=== PATIENT | male | born 1965 | race Caucasian/White ===

== ENCOUNTER 2019-09-30 18:35 | Emergency (ER) | payer OTHER, SELFPAY ==
--- NOTE | ~2019-09-30 | XR_ITS ---
XR abdomen/kub 1V 09/30/2019 20:17 INDICATION: Right-sided flank pain TECHNIQUE: KUB COMPARISON: None FINDINGS: Bowel gas pattern is normal. There is no evidence of free air, mass, organomegaly, ascites or obstruction. There is a 4 mm right ureteral stone overlying the sacrum. There are pelvic phleboli ths. The bones appear intact. IMPRESSION: 1: 4 mm right ureteral stone at the sacral level. Reviewed, dictated and finalized at location A. TERING FILTERING SUPERVISOR
--- NOTE | ~2019-09-30 | CT_ITS ---
EXAMINATION: CT abdomen pelvis wo con DATE: 09/30/2019 19:54 INDICATION: Right flank pain. History of stones. TECHNIQUE: Computed tomography (CT) of the abdomen and pelvis was performed without intravenous contr ast. The dose-length product was 342.30 mGy-cm. Automated exposure control and iterative reconstructi on technique were employed. COMPARISON: CT dated 04/24/2020 FINDINGS: Lung bases are unremarkable. Heart size is normal. No significant pleural or pericardial ef fusion. Calcified granuloma right lower lobe. Stable small subcentimeter hypodensity right hepatic lobe, most likely benign. The spleen, pancreas, adrenal glands are unremarkable. There are multiple punctate bilateral renal stones. There is a 4 mm right ureteral stone at the sacral level, image 124 with mild right hydroureteronephrosis. There is m ild left hydronephrosis, although no gross obstructing stone or mass identified. There are pelvic phl eboliths. There is atherosclerosis. Gallbladder is present. Nonobstructive bowel gas pattern. No claribel l obstruction. No free air or free fluid. Mild lumbar spondylosis. IMPRESSION: 1. 4 mm right ureteral stone at the sacral level. Mild hydronephrosis. 2: Bilateral nephrolithiasis. Reviewed, dictated and finalized at location A. IO TECH
[2019-09-30 18:48] VITALS: BP 171/91; PULSE 78; RESP 15; TEMP 36.7; O2SAT 99
--- NOTE | 2019-09-30 19:25 | ED.ABDPAIN ---
HPI - Abdominal Pain General Chief Complaint: Back Pain/Injury Stated Complaint: kidney stone Time Seen by Provider: 09/30/19 19:22 Source: patient and RN notes reviewed Mode of arrival: ambulatory Limitations: no limitations History of Present Illness HPI narrative: Pt is a 53 y/o male with a Hx of frequent kidney stones, who presents to the ED with c/o rt flank pain starting roughly 3-4 hours ago. He notes that he was recently diagnosed with kidney stones 5 months ago. Pt states that he subsequently received a lithotripsy in April of 2019. He notes that he then passed several tic tac sized kidney stones last week. Pt states that he developed pain in his rt flank several hours ago this evening. He describes his pain as dull, and currently rates his pain at 10/10. Pt notes that he took Hydrocodone for his symptoms, but denies having any relief. He states that he believes he is having another kidney stone currently. Pt denies any dysuria, gross hematuria, vomiting, CP, SOB, fever, chills, or other symptoms. MD elicited complaint: flank pain Pertinent past history: kidney stones and other (lithotripsy) Onset (ago): hour(s) (3-4) Location: R flank Pain scale (0-10): 10 Quality: dull Associated symptoms: denies other symptoms Treatments prior to arrival: prescription analgesics (Hydrocodone) Related Data Home Medications Medication Instructions Recorded Confirmed alprazolam 09/30/19 hydrocodone-acetaminophen 09/30/19 Allergies Allergy/AdvReac Type Severity Reaction Status Date / Time No Known Allergies Allergy Verified 09/30/19 18:52 Review of Systems Review of Systems: All systems reviewed & are unremarkable except as noted in HPI and below Constitutional: Constitutional: Denies chills, Denies fever(s), Denies headache(s) and Denies weakness Cardiovascular: Cardiovascular: Denies chest pain and Denies dyspnea Respiratory: Respiratory: Denies cough and Denies dyspnea Gastrointestinal: Gastrointestinal: Denies diarrhea, Denies nausea and Denies vomiting Genitourinary: Genitourinary: Denies hematuria, Denies dysuria and Reports flank pain (rt flank pain) PMFSH Past Medical History Medical History Anxiety Carpal tunnel syndrome Depression GERD (gastroesophageal reflux disease) HLD (hyperlipidemia) Kidney stones frequent Peptic ulcer Plantar fasciitis Right arm fracture Surgical History Surgical History Hx of carpal tunnel repair bilateral wrists Hx of cystoscopy with extraction of kidney stone Hx of lithotripsy Social History Social History Smoking status: Former smoker Gender identity (if verbalized by the patient): Male Comments PCP is Dr. Hemphill. Urologist is Dr. Jarvis. Exam Const: General: no acute distress and well developed Orientation/consciousness: oriented to person, oriented to place, oriented to time and patient oriented x3 HENMT: Head: normocephalic Ears: external ears normal General nose exam: Normal external nose present Resp: Effort & Inspection: normal respiratory effort Auscultation: clear to auscultation bilaterally Cardio: Rate: regular rate Rhythm: regular rhythm GI: GI Palp: No abdominal tenderness and Yes Soft to palpation Skin: General skin exam: normal color and turgor normal Neuro: General: oriented to person, oriented to place, oriented to time and patient oriented x3 Cognition (Neuro): normal cognition Extrem: General: normal to inspection, full ROM and no pedal edema Psych: Appearance: grossly normal Mental Status: mental status grossly normal Affect: normal affect Course Reevaluation(s) Reevaluation #1: Re-evaluated the pt. He notes that his symptoms have improved, and currently rates his pain at 5/10. I offered admission for pain control and urology consult. He declined, would like to be dischar
[2019-09-30 19:52] LABS: Basophils Absolute Auto 0.1 K/mm3 (0.0-0.1); Basophils Percent Auto 0.7 % (0.2-1.2); Eosinophils Absolute Auto 0.1 K/mm3 (0-0.3); Eosinophils Percent Auto 0.8 % (0-4.4); Hemoglobin 13.4 g/dL (14.0-18.0); Immature Granulocyte Absolute 0.02 K/mm3 (0.00-0.031); Immature Granulocyte Percent A 0.2 % (0-0.5); Lymphocytes Absolute Auto 1.25 K/mm3 (0.9-3.2); Mean Corpuscular HGB Conc 31.2 g/dl (32-36); Mean Corpuscular Hemoglobin 28.4 pg (26-34); Mean Corpuscular Volume 91.1 fl (80-100); Mean Platelet Volume 11.8 fl (7.4-10.4); Monocytes Absolute Auto 0.6 K/mm3 (0.1-0.6); Monocytes Percent Auto 6.2 % (2.6-8.5); Neutrophils Percent Auto 78.1 % (45.5-73.1); Platelet Count Result 228 k/mm3 (150-375); Red Blood Count 4.72 M/mm3 (4.6-6.20); Red Cell Distribution Width 13.6 % (11.5-14.5); White Blood Count 8.9 K/mm3 (4.5-10.0)
[2019-09-30 19:59] LABS: Add Urine Microscopic? YES; Appearance Urine Cloudy (Clear); Bacteria Urine Trace /hpf; Bilirubin Urine Negative (Negative); Blood Urine 3+ (Negative); Color Urine Yellow (Yellow); Glucose Urine UA Negative (Negative); Ketones Urine Negative (Negative); Leukocyte Esterase Ur 2+ LEU/UL (Negative); Mucus Urine Heavy /lpf; Nitrate Urine Negative (Negative); Protein Urine 1+ mg/dL (Negative); RBC Urine >75 /hpf (0-2); Specific Grav Ur 1.019 (1.001-1.035); Urobilinogen Urine Negative mg/dL (<2.0); WBC Urine >75 /hpf
[2019-09-30 19:59] LABS: Blood Urea Nitrogen 17 mg/dL (9-20); Calcium 9.1 mg/dL (8.4-10.2); Carbon Dioxide 25 mmol/L (22-30); Chloride 102 mmol/L (98-107); Estimated CRCL calculation 80 ml/min; Estimated Glomerular Filt Rate > 60; Glucose 103 mg/dL (75-110); Potassium 3.9 mmol/L (3.4-5.0); Sodium 137 mmol/L (137-145)
[2019-09-30] MEDS: SODIUM CHLORIDE 0.9% IV 1,000 ML 999 ML IV CONT (20:19)
[2019-09-30] MEDS: HYDROMORPHONE HCL 1 MG/ML INJ IV PUSH (20:20)
[2019-09-30] MEDS: KETOROLAC 15 MG/ML VIAL (*BKC) IV PUSH (20:43)
[2019-09-30 22:02] VITALS: BP 116/86; PULSE 89; O2SAT 92
== END 2019-09-30 22:04 | disposition home or self-care (01) ==
PROVIDERS: Emergency Provider Emergency Medicine; PCP Internal Medicine
DX: N13.2 Hydronephrosis with renal and ureteral calculous obstruction (principal); F41.9 Anxiety disorder, unspecified; F32.9 Major depressive disorder, single episode, unspecified; K21.9 Gastro-esophageal reflux disease without esophagitis; E78.5 Hyperlipidemia, unspecified; Z87.442 Personal history of urinary calculi; Z87.891 Personal history of nicotine dependence
CPT/HCPCS: 36415; 74018; 74176; 80048; 81001; 85025; 87086; 96361; 96374; 96375; 99284; J1170; J1885; J7030

== ENCOUNTER 2019-10-06 01:05 | Day surgery (SDC) | payer OTHER, SELFPAY ==
[2019-10-04 14:40] VITALS: BMI 35.5
[2019-10-06] VITALS (8 sets, daily range): BP systolic 103–141; BP diastolic 67–84; PULSE 65–72; RESP 14–20; TEMP 37.2–38.2; O2SAT 93–99
--- NOTE | ~2019-10-06 | XR_ITS ---
EXAMINATION: XR fluoroscopy no charge DATE: 10/06/2019 10:20 INDICATION: Right ureteral stone. TECHNIQUE: 3 intraoperative spot fluoroscopic views of the abdomen and pelvis were obtained. COMPARISON: CT abdomen and pelvis 09/30/2019 FINDINGS: There are phleboliths in right pelvis. There is no visible urolithiasis. IMPRESSION: 1. No visible urolithiasis. Reviewed, dictated and finalized at location A. LE UI/UX DESIGNER IMPRESSION: 1. No visible urolithiasis.
--- NOTE | 2019-10-06 07:44 | WPDHPUPDATE1 ---
History and Physical Update Update Date/Time: 10/06/19 07:44 History and Physical has been reviewed, including an updated exam of the patient. There are NO changes in the patient's condition. Risks, benefits, and alternatives have been discussed and questions answered. Patient agrees to proceed with procedure.
--- NOTE | 2019-10-06 08:01 | WPDANESEPPF ---
Anes - Initial Pre Proc Eval Procedure: Operation Date: 10/06/19 09:30 Proposed Procedures p Cystoscopy, Right Retrograde Pyelogram, Right Ureteroscopy, Possible Right Stent Placement - Jos Hansen MD s Holmium Laser Procedure, Right Stone Extraction - Jos Hansen MD Date/Time: 10/06/19 08:01 Surgeon: Jos Hansen MD Pre Op Diagnosis: Right Ureteral Stone Patient Data Age: 53 Gender: M Height: 5 ft 6 in Weight: 99.79 kg Allergies Allergy/AdvReac Type Severity Reaction Status Date / Time No Known Allergies Allergy Verified 10/04/19 14:40 Home Medications Medication Instructions Recorded Confirmed Type alprazolam 1 mg PO DAILY PRN 09/30/19 10/04/19 History ciprofloxacin HCl 500 mg PO Q12H #14 tablet 09/30/19 10/04/19 Rx oxycodone-acetaminophen [Percocet] 1 tablet PO Q6H PRN #20 tablet 09/30/19 10/04/19 Rx tamsulosin [Flomax] 0.4 mg PO HS #10 cap 09/30/19 10/04/19 Rx hydrocodone-acetaminophen 1 tablet PO TID 10/04/19 10/04/19 History pantoprazole 40 mg PO QAM 10/04/19 10/04/19 History pravastatin 80 mg PO HS 10/04/19 10/04/19 History Patient hx anesthesia problems: none Family hx anesthesia problems: none PMFSH Past Medical History Medical History Anxiety Carpal tunnel syndrome Depression GERD (gastroesophageal reflux disease) HLD (hyperlipidemia) Kidney stones frequent Peptic ulcer Plantar fasciitis Right arm fracture Surgical History Surgical History Hx of carpal tunnel repair bilateral wrists Hx of cystoscopy with extraction of kidney stone Hx of lithotripsy Social History Social History Smoking status: Former smoker Gender identity (if verbalized by the patient): Male Anes - Eval Final PreProcedure Day of Procedure 10/06/19 08:01 Patient weight: obese Heart: regular rate and rhythm Lungs: clear to auscultation Airway: Mallampati scale class II Neurological: alert and oriented Last oral intake: >/= 8 hours ASA classification: III Emergent: no Anesthetic plan: proceed Anesthesia type and monitoring: general LMA and standard monitoring Informed Consent: The patient's anesthetic plan and its attendant risks and benefits were discussed with the patient/family/POA. Questions were solicited and answers provided to the satisfaction of the patient/family/POA.
--- NOTE | 2019-10-06 08:07 | ECG_ITS ---
Measurements Intervals [place] Rate: 74 P: -23 HI: 151 QRS: -19 QRSD: 90 T: -3 QT: 363 QTc: 403 Interpretive Statements SINUS RHYTHM BORDERLINE T WAVE ABNORMALITY- INFERIOR LEADS BORDERLINE ECG Electronically Signed On 10-06-2019 8:31:23 LAND COMMISSIONER by Vance Le D.O.
[2019-10-06] MEDS: LACTATED RINGERS 1,000 ML 30 ML IV CONT ×2 (08:20→11:05)
--- NOTE | 2019-10-06 08:43 | WPDHPUPDATE1 ---
History and Physical Update Update Date/Time: 10/06/19 08:43 History and Physical has been reviewed, including an updated exam of the patient. There are NO changes in the patient's condition. Risks, benefits, and alternatives have been discussed and questions answered. Patient agrees to proceed with procedure. Plan for cystoscopy, right retrograde, right ureteroscopy with stone extraction, possible holmium laser and stent placement.
[2019-10-06] MEDS: ceFAZolin 2 GM/D5W 50 ML 2 GM/50 ML BAG IVPB (09:55)
[2019-10-06] MEDS: LIDOCAINE HCL 2% GEL UROJET 10 ML PKG MUCOUS MEM (10:11)
--- NOTE | 2019-10-06 10:19 | PM.PROC ---
Procedure Note - Detailed Date of procedure: 10/06/19 Pre-op diagnosis: Right Ureteral Stone Procedure performed: Cystoscopy, bilateral ureteroscopy, stone extraction Description of procedure: Patient was taken to the operative suite and correctly identified. Once general anesthesia was obtained he was placed in the dorsal lithotomy position prepped and draped in the usual sterile fashion. Twenty-two Divehi scope was inserted into the bladder. It was noted that it was a 4-5 mm stone sitting on the floor the bladder. This was retrieved and sent for analysis. The right ureteral for a edematous. We need to make certain that the stone had no residual fragments present in the ureter. A rigid ureteral scope was inserted into the right year orifice without any difficulty. This was passed all the way up to the UPJ area. There were no other ureteral stones noted. Given there was a very little manipulation we did not stent the patient. Patient had described some left lower quadrant discomfort in the preoperative area. As such we placed a ureteral scope into the left orifice in addition and inspected the ureter. There were no stones in the left ureter either. 2% viscous lidocaine was inserted into the urethra and patient was taken recovery room stable condition. He will be discharged home with antibiotics and has pain meds at home. Will obtain renal ultrasound in 2 weeks to make sure no residual hydro Anesthesia: GLMA Surgeon: Jos Hansen MD Drains: No Packing: No Pathology: none sent Complications: No immediate complications Condition: stable Disposition: PACU
== END 2019-10-06 11:57 | disposition home or self-care (01) ==
PROVIDERS: PCP Internal Medicine; Visit Provider Urology
PROC: (CPT 52352; principal; 2019-10-06 09:30)
DX: N20.1 Calculus of ureter (principal); E78.5 Hyperlipidemia, unspecified; F41.8 Other specified anxiety disorders; K21.9 Gastro-esophageal reflux disease without esophagitis; Z87.891 Personal history of nicotine dependence; E66.9 Obesity, unspecified; Z68.34 Body mass index [BMI] 34.0-34.9, adult
CPT/HCPCS: 52352; 82365; 88300; 93005; A9270; C1769; J0131; J0690; J1885; J2250; J2405; J2704; J3010; J7120

== ENCOUNTER 2020-02-22 20:06 | Emergency (ER) | payer OTHER, SELFPAY ==
[2020-02-22 20:08] VITALS: BP 157/100; PULSE 72; RESP 20; TEMP 36.8; O2SAT 98
--- NOTE | 2020-02-22 20:47 | ED.ABDPAIN ---
HPI - Abdominal Pain General Chief Complaint: Urogenital-Male Stated Complaint: Possible UTI Time Seen by Provider: 02/22/20 20:19 Source: patient Mode of arrival: ambulatory Limitations: no limitations History of Present Illness HPI narrative: Patient is a 54-year-old male who presents with redness and discharge from the penis for the last several days noting he had sex with his ex. patient denies fever chills nausea vomiting diarrhea has not taken anything for symptoms has not been seen for this complaint would like to be tested and treated for STDs Related Data Home Medications Medication Instructions Recorded Confirmed alprazolam 1 mg PO DAILY PRN 09/30/19 10/06/19 hydrocodone-acetaminophen 1 tablet PO TID 10/04/19 10/06/19 pantoprazole 40 mg PO QAM 10/04/19 10/06/19 pravastatin 80 mg PO HS 10/04/19 10/06/19 Allergies Allergy/AdvReac Type Severity Reaction Status Date / Time No Known Allergies Allergy Verified 02/22/20 20:29 Review of Systems Review of Systems: All systems reviewed & are unremarkable except as noted in HPI and below PMFSH Past Medical History Medical History Anxiety Carpal tunnel syndrome Depression GERD (gastroesophageal reflux disease) HLD (hyperlipidemia) Kidney stones frequent Peptic ulcer Plantar fasciitis Right arm fracture Surgical History Surgical History Hx of carpal tunnel repair bilateral wrists Hx of cystoscopy with extraction of kidney stone Hx of lithotripsy Social History Social History Smoking status: Former smoker Gender identity (if verbalized by the patient): Male Exam Narrative: Exam Narrative: GENERAL: Well-appearing, well-nourished, and in no acute distress. HEAD: Normocephalic, atraumatic. EYES: PERRLA and EOMI. ENT: Nares clear, no rhinorrhea or epistaxis. Mucous membranes moist. CHEST: Clear to auscultation. No respiratory distress. No wheezes rales or rhonchi HEART: Regular rate and rhythm. No murmur heard. Normal peripheral pulses. MALE GENITOURINARY: Redness and irritation of the tip of the penis with purulent discharge EXTREMITIES: Normal range of motion. No edema. SKIN: Warm, dry, no rash. NEURO: No focal deficits. Alert and oriented x3. PSYCH: Normal mood and affect. Course Course Emergency Course: Patient in the room in no distress agreeing to follow-up with his urologist tested and treated for STDs will be discharged home Vital Signs Vital signs: Vital Signs Temperature 98.3 F 02/22/20 20:08 Pulse Rate 72 02/22/20 20:08 Respiratory Rate 20 02/22/20 20:08 Blood Pressure 157/100 H 02/22/20 20:08 Pulse Oximetry 98 02/22/20 20:08 Temperature 98.3 F 02/22/20 20:08 Pulse Rate 72 02/22/20 20:08 Respiratory Rate 20 02/22/20 20:08 Blood Pressure 157/100 H 02/22/20 20:08 Pulse Oximetry 98 02/22/20 20:08 MDM - Abdominal Pain MDM Narrative Medical decision making narrative: Patient in the room in no distress tested and treated for STDs agreeing to follow-up as directed provided with reasons to return Discharge Plan Discharge Clinical Impression: Urethritis Patient Disposition: Home, Self-Care Condition: Stable Instructions: Antibiotic Form, Sexually Transmitted Diseases (ED) Additional Instructions: Follow-up with urology in the next 7 days Increase fluid intake. No sex until cleared by urology Tylenol and Motrin for pain and or fever if needed. Follow up with your doctor for further care. Call your doctor or return to the emergency department if needed for worsening symptoms or problems, especially if you have persistent high fever, vomiting, inability to urinate, weakness, blood in your urine, chnage in mental status, or other serious concerns. Prescriptions: No Action pravastatin 40 mg Tablet 80 m
[2020-02-22] MEDS: cefTRIAXone 250 MG VIAL IM (21:03)
[2020-02-22] MEDS: metroNIDAZOLE 250 MG TABLET 2000 MG PO (21:03)
[2020-02-22] MEDS: AZITHROMYCIN 250 MG TABLET 1000 MG PO (21:03)
--- NOTE | 2020-02-22 21:04 | PC.NURSE ---
lidocaine used to reconstitute rocephin
[2020-02-22 21:05] LABS: Add Urine Microscopic? YES; Appearance Urine Cloudy (Clear); Bacteria Urine Trace /hpf; Bilirubin Urine Negative (Negative); Blood Urine Negative (Negative); Color Urine Yellow (Yellow); Glucose Urine UA Negative (Negative); Ketones Urine Negative (Negative); Leukocyte Esterase Ur 1+ LEU/UL (Negative); Nitrate Urine Negative (Negative); Protein Urine Negative (Negative); Urobilinogen Urine Negative mg/dL (<2.0); WBC Urine 31-50 /hpf
== END 2020-02-22 21:04 | disposition home or self-care (01) ==
PROVIDERS: Emergency Medicine Emergency Medical Services; Emergency Provider Emergency Medicine; PCP Internal Medicine
DX: N34.2 Other urethritis (principal); F41.9 Anxiety disorder, unspecified; F32.9 Major depressive disorder, single episode, unspecified; Z87.442 Personal history of urinary calculi; K21.9 Gastro-esophageal reflux disease without esophagitis; E78.5 Hyperlipidemia, unspecified; Z87.11 Personal history of peptic ulcer disease; Z87.891 Personal history of nicotine dependence
CPT/HCPCS: 81001; 87086; 87491; 87591; 96372; 99283; A9270; J0696

== ENCOUNTER 2020-02-27 13:23 | Outpatient (CLI) | payer OTHER, SELFPAY ==
--- NOTE | ~2020-02-27 | XR_ITS ---
EXAMINATION: XR abdomen/kub 1V INDICATION: Personal history of kidney stones TECHNIQUE: Supine views of the abdomen were obtained on 2 radiographs. COMPARISON: 09/30/2019 FINDINGS: Phleboliths are noted in the pelvis. There is a new 1.6 cm lucent centered density just to the right of midline in the pelvis of unclear location. The bowel gas pattern is normal. Prostatic ca lcifications are noted. IMPRESSION: 1. New 1.6 cm density just to the right of midline in the pelvis of unclear location, possibly within the bowel. Reviewed, dictated and finalized at location A. IMPRESSION: 1. New 1.6 cm density just to the right of midline in the pelvis of unclear loc ation, possibly within the bowel.
== END 2020-02-27 13:24 | disposition home or self-care (01) ==
LOC: ANHIMG 13:28
PROVIDERS: PCP Internal Medicine; Visit Provider Urology
DX: Z87.442 Personal history of urinary calculi (principal)
CPT/HCPCS: 74018

== ENCOUNTER 2020-05-27 13:05 | Emergency (ER) | payer OTHER, SELFPAY ==
--- NOTE | ~2020-05-27 | XR_ITS ---
EXAMINATION: XR ankle RT min 3V DATE: 05/27/2020 13:29 INDICATION: Right ankle pain. TECHNIQUE: 4 views of right ankle were obtained. COMPARISON: Right ankle radiographs 11/06/2014 FINDINGS: Bone alignment is normal. No fracture. There is mild osteoarthritis of talonavicular joint. There is an enthesophyte at posterior aspect of calcaneal tuberosity. Ankle soft tissue swelling is noted. IMPRESSION: 1. Mild osteoarthritis of talonavicular joint. Reviewed, dictated and finalized at location A.
[2020-05-27 13:18] VITALS: BP 163/90; PULSE 74; RESP 16; TEMP 36.8; O2SAT 96
[2020-05-27 14:48] VITALS: BP 163/90; PULSE 74; RESP 16; TEMP 36.8; O2SAT 96
--- NOTE | 2020-05-27 15:38 | ED.LOWEXIN ---
HPI - Extremity Injury (Lower) General Chief Complaint: Extremity Injury, Lower Stated Complaint: I think I broke my right ankle Time Seen by Provider: 05/27/20 14:46 Source: patient Mode of arrival: ambulatory Limitations: no limitations History of Present Illness HPI Narrative: This is a 54-year-old male that presents the emergency department for right ankle pain after an injury yesterday. Reports he was stepping down off a step. Reports he rolled the right ankle. Reports since he has had swelling and pain in the ankle. Denies decreased ROM or numbness. Related Data Home Medications Medication Instructions Recorded Confirmed alprazolam 1 mg PO DAILY PRN 09/30/19 10/06/19 pantoprazole 40 mg PO QAM 10/04/19 10/06/19 pravastatin 80 mg PO HS 10/04/19 10/06/19 hydrocodone-acetaminophen tablet 05/27/20 Allergies Allergy/AdvReac Type Severity Reaction Status Date / Time No Known Allergies Allergy Verified 05/27/20 14:50 Review of Systems Review of Systems: Narrative: CONSTITUTIONAL: Denies fever MUSCULOSKELETAL: Reports joint pain, and myalgia. NEUROLOGIC: Denies numbness All systems reviewed & are unremarkable except as noted in HPI and below PMFSH Social History Social History Smoking status: Former smoker Gender identity (if verbalized by the patient): Male Exam Narrative: Exam Narrative: GENERAL: Well-appearing, well-nourished, and in no acute distress. HEAD: Normocephalic, atraumatic. EYES: EOMI. EXTREMITIES: Normal range of motion. Mild edema about the right ankle. Normal sensation. Normal DP pulses SKIN: Warm, dry, no rash. NEURO: No focal deficits. Alert and oriented x3. PSYCH: Normal mood and affect Course Vital Signs Vital signs: Vital Signs Temperature 98.3 F 05/27/20 13:18 Pulse Rate 74 05/27/20 13:18 Respiratory Rate 16 05/27/20 13:18 Blood Pressure 163/90 H 05/27/20 13:18 Pulse Oximetry 96 05/27/20 13:18 Temperature 98.3 F 05/27/20 14:48 Pulse Rate 74 05/27/20 14:48 Respiratory Rate 16 05/27/20 14:48 Blood Pressure 163/90 H 05/27/20 14:48 Pulse Oximetry 96 05/27/20 14:48 MDM - Extremity Injury (Lower) MDM Narrative Medical decision making narrative: Patient presents the emergency department for right ankle pain after an injury yesterday. Right ankle x-rays without acute osseous abnormalities. Patient placed in Johann wrap and given crutches. He was educated on care of ankle sprain. He is to follow-up with primary care doctor. He was given warnings to return to the ER Imaging Data Radiologist's impression: ITS Impressions Ankle X-Ray 05/27/20 13:32 IMPRESSION: 1. Mild osteoarthritis of talonavicular joint. Critical Care Time Critical Care Time Critical Care Time: No Discharge Plan Discharge Clinical Impression: Ankle sprain and strain Patient Disposition: Home, Self-Care Condition: Stable Instructions: Ankle Sprain (ED) Additional Instructions: Return to the emergency department if you experience fever, redness and swelling of your leg, or any other symptoms that are concerning to you Wear JOHANN wrap and use crutches. No weight on the affected leg until able to bear weight without pain. Ice and elevate extremity. [id number] pain medication as needed Follow up with your doctor for further care. Prescriptions: No Action pravastatin 40 mg Tablet 80 mg PO HS RF: 0 pantoprazole 40 mg Tablet,Delayed Release (Dr/Ec) 40 mg PO QAM RF: 0 alprazolam 1 mg tablet 1 mg PO DAILY PRN (Reason: Anxiety) RF: 0 tamsulosin [Flomax] 0.4 mg capsule 0.4 mg PO HS Qty: 10 RF: 0 hydrocodone-acetaminophen 10-325 mg tablet RF: 0 Follow-up/Referrals: Joby,Shawn Orourke MD [Primary Care Provider] - 1 Week
--- NOTE | 2020-05-27 16:07 | PC.NURSE ---
Pt states he has crutches at home and will use those.
== END 2020-05-27 16:08 | disposition home or self-care (01) ==
PROVIDERS: Emergency Provider Emergency Medicine; PCP Internal Medicine
DX: S93.401A Sprain of unspecified ligament of right ankle, initial encounter (principal); S96.911A Strain of unspecified muscle and tendon at ankle and foot level, right foot, initial encounter; Z87.891 Personal history of nicotine dependence; M19.071 Primary osteoarthritis, right ankle and foot; X50.9XXA Other and unspecified overexertion or strenuous movements or postures, initial encounter
CPT/HCPCS: 73610; 99283

== ENCOUNTER 2021-02-19 13:48 | Emergency (ER) | payer OTHER, SELFPAY ==
--- NOTE | ~2021-02-19 | CT_ITS ---
EXAMINATION: CT abdomen pelvis wo con DATE: 02/19/2021 15:12 INDICATION: Left flank pain and diarrhea TECHNIQUE: Computed tomography (CT) of the abdomen and pelvis was performed without intravenous contr ast. The dose-length product was 398.27 mGy-cm. Automated exposure control and iterative reconstructi on technique were employed. COMPARISON: CT dated 09/30/2019. FINDINGS: Lung bases are unremarkable. Heart size is normal. No significant pleural or pericardial ef fusion. No significant vascular abnormality. No lymphadenopathy. There are nonobstructing bilateral renal stones. There is a distal left ureteral stone measuring 5 mm with moderate left hydroureteronephrosis. Nonobstructive bowel gas pattern. No evidence for diverticulitis. Normal appendix. No free air or roshan e fluid. Gallbladder is present. Mild lumbar spondylosis. IMPRESSION: 1. Distal left ureteral stone measuring 5 mm with moderate hydronephrosis. 2: Nonobstructing bilateral nephrolithiasis. Reviewed, dictated and finalized at location B.
--- NOTE | ~2021-02-19 | XR_ITS ---
EXAMINATION: XR abdomen/kub 1V INDICATION: Left-sided abdominal pain TECHNIQUE: Supine views of the abdomen were obtained on 2 radiographs. COMPARISON: CT from today FINDINGS: A 5 mm stone projects in the pelvis over the left sacrum in the expected location of the kn own left distal ureteral stone. There are phleboliths of the pelvis. Bowel contents obscure visualiza tion of the kidneys however multiple small bilateral stones are seen in the kidneys which measure up to 3 mm, better characterized on today's CT scan. The bowel gas pattern is normal. IMPRESSION: 1. 5 mm stone projecting in the expected location of the left distal ureter. 2. Bilateral nephrolithiasis. Reviewed, dictated and finalized at location A.
[2021-02-19 13:58] VITALS: BP 162/101; PULSE 81; RESP 16; TEMP 37.2; O2SAT 97
[2021-02-19 14:11] LABS: Basophils Percent Auto 0.5 % (0.2-1.2); Eosinophils Absolute Auto 0.1 K/mm3 (0-0.3); Eosinophils Percent Auto 1.4 % (0-4.4); Hemoglobin 14.4 g/dL (14.0-18.0); Immature Granulocyte Absolute 0.02 K/mm3 (0.00-0.031); Immature Granulocyte Percent A 0.4 % (0-0.5); Lymphocytes Absolute Auto 1.33 K/mm3 (0.9-3.2); Lymphocytes Percent Auto 23.6 % (18.3-44.2); Mean Corpuscular HGB Conc 31.3 g/dl (32-36); Mean Corpuscular Hemoglobin 28.8 pg (26-34); Mean Platelet Volume 10.8 fl (7.4-10.4); Monocytes Absolute Auto 0.3 K/mm3 (0.1-0.6); Neutrophils Absolute Auto 3.8 K/mm3 (1.3-6.7); Neutrophils Percent Auto 68.1 % (45.5-73.1); Platelet Count Result 196 k/mm3 (150-375); Red Cell Distribution Width 13.2 % (11.5-14.5); White Blood Count 5.6 K/mm3 (4.5-10.0)
[2021-02-19 14:22] LABS: Anion Gap 8 mmol/L (8-16); Blood Urea Nitrogen 12 mg/dL (9-20); Calcium 8.9 mg/dL (8.4-10.2); Carbon Dioxide 25 mmol/L (22-30); Chloride 107 mmol/L (98-107); Estimated CRCL calculation 78 ml/min; Estimated Glomerular Filt Rate > 60; Glucose 103 mg/dL (75-110); Potassium 4.2 mmol/L (3.4-5.0); Sodium 140 mmol/L (137-145)
[2021-02-19 14:29] LABS: Add Urine Microscopic? YES; Appearance Urine Clear (Clear); Bilirubin Urine Negative (Negative); Blood Urine 1+ (Negative); Color Urine Yellow (Yellow); Glucose Urine UA Negative (Negative); Ketones Urine Negative (Negative); Leukocyte Esterase Ur Negative LEU/UL (Negative); Mucus Urine Few /lpf; Nitrate Urine Negative (Negative); Protein Urine 2+ mg/dL (Negative); Specific Grav Ur 1.026 (1.001-1.035); Squamous Epithelial Cell Urine Rare /hpf (Few); Urobilinogen Urine Negative mg/dL (<2.0); WBC Urine 0-3 /hpf
--- NOTE | 2021-02-19 14:49 | ED.GENADULT ---
HPI - General Adult General Chief complaint: Abdominal Pain Stated complaint: left flank pain Time Seen by Provider: 02/19/21 14:28 Source: RN notes reviewed History of Present Illness HPI narrative: Patient presents to emergency department from home for left lower quadrant pain. Patient states pain began 4 days ago described as sharp and stabbing with radiation of the left flank left states is associated diarrhea. States he has a history of kidney stones and feels similar to prior patient did take Vicodin at home for the pain with minimal relief. He denies any fevers or chills chest pain, shortness of breath vomiting or any other symptoms Related Data Home Medications Medication Instructions Recorded Confirmed alprazolam 1 mg PO DAILY PRN 09/30/19 10/06/19 pantoprazole 40 mg PO QAM 10/04/19 10/06/19 pravastatin 80 mg PO HS 10/04/19 10/06/19 hydrocodone-acetaminophen tablet 05/27/20 terbinafine HCl mg 02/19/21 Allergies Allergy/AdvReac Type Severity Reaction Status Date / Time No Known Allergies Allergy Verified 02/19/21 14:39 Review of Systems Review of Systems: Narrative: Gen.: Denies fevers or chills ENT: Denies congestion Respiratory: Denies shortness of breath or cough CV: Denies chest pain or palpitations GI: See HPI denies burning, urgency, frequency or hematuria Musculoskeletal: Denies back pain or muscle pain Neuro: Denies numbness, tingling, weakness or focal weakness Skin: Denies rash Except as documented, all other systems reviewed and negative PMFSH Past Medical History Medical History (Updated 02/19/21 @ 16:33 by Reginaldo Garcia DO) Anxiety Carpal tunnel syndrome Depression GERD (gastroesophageal reflux disease) HLD (hyperlipidemia) Kidney stones frequent Peptic ulcer Plantar fasciitis Right arm fracture Surgical History Surgical History Hx of carpal tunnel repair bilateral wrists Hx of cystoscopy with extraction of kidney stone Hx of lithotripsy Social History Social History Smoking status: Former smoker Gender identity (if verbalized by the patient): Male Exam Narrative: Exam Narrative: APPEARANCE: No acute distress, nontoxic, resting in bed HEENT: Normocephalic, atraumatic, OMM RESPIRATORY: No respiratory distress, clear to auscultation bilaterally with no rhonchi wheezing or rales CARDIOVASCULAR: RRR s murmur ABDOMINAL: Soft nondistended tender palpation left lower quadrant no tenderness left upper quadrant, right upper quadrant and right lower quadrant no rebound or guarding MUSCULOSKELETAl: Moves all extremities. No clubbing, cyanosis or edema. NEURO: Awake and alert. Following commands, speech normal, no focal deficits SKIN:: Warm, dry. Normal Color PSYCHIATRIC: Normal affect/mood Course Course Emergency Course: Discussed with patient kidney stone states he follows with Dr. Jarvis. Patient is on Vicodin for chronic leg pain at home states he normally requires Percocets as Vicodin does not help enough for his kidney stones patient states his PCP did call in a prescription for Flomax for him I did discuss with the patient that he cannot take his Vicodin's if he is taking Percocet as needed understands this states he has had this before for his kidney stones Discussed with patient results of workup and diagnosis. Discussed need for follow-up with primary care, proper use of medication, and reasons to return to the emergency department. Patient understands and agrees to current treatment plan Vital Signs Vital signs: Vital Signs Temperature 98.9 F 02/19/21 13:58 Pulse Rate 81 02/19/21 13:58 Respiratory Rate 16 02/19/21 13:58 Blood Pressure 162/101 H 02/19/21 13:58 Pulse Oximetry 97 02/19/21 13:58 Temperature 98.9 F 02/19/21 13:58 Pulse Rate 81 02/19/21 13:58 Respiratory Rate 16 02/19/21 13:58 Blood Pressure 162/101 H
[2021-02-19] MEDS: SODIUM CHLORIDE 0.9% IV 1,000 ML 999 ML IV CONT (14:56)
[2021-02-19] MEDS: KETOROLAC 30 MG/ML VIAL (*BKC) IV PUSH (14:56)
[2021-02-19] MEDS: HYDROmorphone HCL INJ (*CRX) 1 MG/ML SYR 0.5 MG IV PUSH (15:44)
[2021-02-19] MEDS: TAMSULOSIN HCL 0.4 MG CAPSULE PO (16:11)
[2021-02-19 17:15] VITALS: BP 184/102; PULSE 72; RESP 18; TEMP 36.8; O2SAT 100
== END 2021-02-19 17:15 | disposition home or self-care (01) ==
PROVIDERS: Emergency Medicine; Emergency Provider Emergency Medicine; PCP Internal Medicine
DX: N13.2 Hydronephrosis with renal and ureteral calculous obstruction (principal); E78.5 Hyperlipidemia, unspecified; F41.9 Anxiety disorder, unspecified; F32.9 Major depressive disorder, single episode, unspecified; Z87.891 Personal history of nicotine dependence
CPT/HCPCS: 36415; 74018; 74176; 80048; 81001; 85025; 96361; 96374; 96375; 99284; A9270; J1170; J1885; J7030

== ENCOUNTER 2021-07-17 11:50 | Outpatient (CLI) | payer OTHER, SELFPAY ==
--- NOTE | ~2021-07-17 | XR_ITS ---
EXAMINATION: XR shoulder RT min 2V DATE: 07/17/2021 12:11 INDICATION: Right shoulder pain. TECHNIQUE: 4 views of right shoulder were obtained. COMPARISON: None. FINDINGS: Bone alignment is normal. No fracture. There is mild osteoarthritis of glenohumeral joint a nd acromioclavicular joint. IMPRESSION: 1. Polyarticular osteoarthritis. Reviewed, dictated and finalized at location A. REVIEWER
--- NOTE | ~2021-07-17 | XR_ITS ---
EXAMINATION: XR shoulder LT min 2V DATE: 07/17/2021 12:11 INDICATION: Left shoulder pain. TECHNIQUE: 4 views of left shoulder were obtained. COMPARISON: None. FINDINGS: Bone alignment is normal. No fracture. Glenohumeral joint is normal. There is mild acromioc lavicular joint osteoarthritis. IMPRESSION: 1. Mild acromioclavicular joint osteoarthritis. Reviewed, dictated and finalized at location A. PS ARCHITECT
== END 2021-07-17 11:51 | disposition home or self-care (01) ==
LOC: ANHIMG 11:54
PROVIDERS: PCP Internal Medicine; Visit Provider Internal Medicine
DX: M19.012 Primary osteoarthritis, left shoulder (principal)
CPT/HCPCS: 73030

== ENCOUNTER 2021-07-22 12:05 | Outpatient (CLI) | payer OTHER, SELFPAY ==
--- NOTE | ~2021-07-22 | XR_ITS ---
Impression: 1: Mild-moderate lumbar spondylosis. 2: Bilateral nephrolithiasis. XR lumbar spine 2-3V 07/22/2021 12:47 Indication: Low back pain Procedure: 3 views lumbar spine Comparison: No prior studies for comparison. Findings: No fracture, subluxation or dislocation. There is disc narrowing at L3-4 and L4-5 and L5-S1 . No spondylolisthesis. There are bilateral renal stones. Impression: 1: Mild-moderate lumbar spondylosis. 2: Bilateral nephrolithiasis. Reviewed, dictated and finalized at location A. ICAL DEBRIEFER
--- NOTE | ~2021-07-22 | XR_ITS ---
XR foot LT min 3V, XR foot RT min 3V 07/22/2021 12:47 Indication: Bilateral foot pain Procedure: 3 views each foot Comparison: No prior studies for comparison. Findings: No fracture, subluxation or dislocation. There is mild osteoarthritis of the first metatars al-phalangeal joints bilaterally. Lisfranc joint intact. No significant soft tissue abnormality. Smal l degenerative calcaneal enthesophytes bilaterally. No foreign bodies. Impression: 1: Mild bilateral osteoarthritis of the first metatarsal-phalangeal joints. Reviewed, dictated and finalized at location A. OM HOOP DRIVER Impression: 1: Mild bilateral osteoarthritis of the first metatarsal-phalangeal joints. Impression: 1: Mild bilateral osteoarthritis of the first metatarsal-phalangeal joints.
== END 2021-07-22 12:06 | disposition home or self-care (01) ==
LOC: ANHIMG 12:14
PROVIDERS: PCP Internal Medicine; Visit Provider Internal Medicine
DX: M47.896 Other spondylosis, lumbar region (principal); N20.0 Calculus of kidney; M19.071 Primary osteoarthritis, right ankle and foot; M19.072 Primary osteoarthritis, left ankle and foot
CPT/HCPCS: 72100; 73630

== ENCOUNTER 2021-08-17 12:09 | Outpatient (CLI) | payer OTHER, SELFPAY ==
--- NOTE | ~2021-08-17 | MR_ITS ---
EXAMINATION: MR lumbar spine wo con DATE: 08/17/2021 12:51 INDICATION: Other spondylosis, lumbar region. TECHNIQUE: Magnetic resonance imaging (MRI) of the lumbar spine was performed without intravenous con trast. Sequences included sagittal T2-weighted FSE, sagittal T2-weighted FS FSE, sagittal T1-weighted FSE, and axial T2-weighted FSE. COMPARISON: Lumbar spine radiographs 07/22/2021 FINDINGS: There is 3 degrees levocurvature of lumbar spine. Vertebral body heights are normal. There is mildly decreased disc height at L2-L3 and L3-L4 and moderately decreased disc height at L4-L5 and L5-S1 with endplate remodeling. The distal spinal cord signal intensity is normal. The conus medullar is is at T12-L1. The following disc levels are specifically discussed: L1-L2: The disc does not extend beyond the endplate margin. There is mild bilateral facet joint osteo arthritis. There is no neural foraminal stenosis. There is no central canal stenosis. L2-L3: The disc is bulging and has an annular fissure. There is mild bilateral facet joint osteoarthr itis. There is mild bilateral neural foraminal stenosis. There is mild central canal stenosis. L3-L4: The disc is bulging and has an annular fissure. There is mild bilateral facet joint osteoarthr itis. There is mild bilateral neural foraminal stenosis. There is mild central canal stenosis. L4-L5: The disc is bulging and has an annular fissure. There is severe right and moderate left facet joint osteoarthritis. There is moderate bilateral neural foraminal stenosis. There is mild central ca nal stenosis. L5-S1: The disc is bulging and has an annular fissure. There is severe bilateral facet joint osteoart hritis. There is mild right and moderate left neural foraminal stenosis. There is mild central canal stenosis. IMPRESSION: 1. Moderate lumbar spondylosis. Reviewed, dictated and finalized at location A. ION WEAVER
== END 2021-08-17 12:10 | disposition home or self-care (01) ==
LOC: ANHIMG 12:13
PROVIDERS: PCP Internal Medicine; Visit Provider Internal Medicine
DX: M47.817 Spondylosis without myelopathy or radiculopathy, lumbosacral region (principal); M48.07 Spinal stenosis, lumbosacral region
CPT/HCPCS: 72148

== ENCOUNTER 2021-10-29 16:00 | Outpatient (CLI) | payer OTHER, SELFPAY ==
--- NOTE | ~2021-10-29 | XR_ITS ---
XR abdomen/kub 1V 10/29/2021 16:15 INDICATION: Ureteral stone. TECHNIQUE: KUB COMPARISON: CT dated 02/19/2021 and KUB dated 09/30/2019 FINDINGS: Bowel gas pattern is normal. There is no evidence of free air, mass, organomegaly, ascites or obstruction. There are bilateral renal stones. There are pelvic phleboliths which are unchanged. No definite stones are identified in the expected course of ureters. The bones appear intact. IMPRESSION: 1: Bilateral nephrolithiasis.. Reviewed, dictated and finalized at location A. APPLICATIONS DEVELOPER
== END 2021-10-29 16:01 | disposition home or self-care (01) ==
LOC: ANHIMG 16:05
PROVIDERS: PCP Internal Medicine; Visit Provider Urology
DX: N20.0 Calculus of kidney (principal)
CPT/HCPCS: 74018

== ENCOUNTER 2022-06-26 00:59 | Day surgery (SDC) | payer MEDICAID, SELFPAY ==
--- NOTE | 2022-06-16 15:01 | PC.NURSE ---
Pt. notified and informed of upcoming procedure. No complaints or concerns noted.
--- NOTE | 2022-06-25 14:24 | PM.HPGS ---
History of Present Illness History of Present Illness Consent: Risks, benefits, and alternatives have been discussed and questions answered. Patient agrees to proceed with procedure. 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 His last EGD was 3 years ago. Review of Systems Review of Systems: All systems reviewed & are unremarkable except as noted in HPI and below PMFSH Past Medical History Medical History Anxiety Carpal tunnel syndrome Depression GERD (gastroesophageal reflux disease) HLD (hyperlipidemia) Kidney stones frequent Peptic ulcer Plantar fasciitis Right arm fracture Surgical History Surgical History Hx of carpal tunnel repair bilateral wrists Hx of cystoscopy with extraction of kidney stone Hx of lithotripsy Social History Social History Smoking status: Former smoker Substance use type: does not use Living arrangements: with family Gender identity (if verbalized by the patient): Male Spiritual care concerns: No Meds Home Medications and Allergies Home Medications Medication Instructions Recorded Confirmed Type alprazolam 1 mg tablet 1 mg PO DAILY PRN Anxiety 09/30/19 06/26/22 History tamsulosin 0.4 mg capsule (Flomax) 0.4 mg PO HS #10 caps 09/30/19 06/26/22 Rx pantoprazole 40 mg tablet,delayed 40 mg PO QAM 10/04/19 06/26/22 History release hydrocodone 10 mg-acetaminophen 1 tablet PO PRN PRN Back Pain 05/27/20 06/26/22 History 325 mg tablet ibuprofen 600 mg tablet (IBU) 600 mg PO Q6H PRN pain #20 tabs 02/19/21 06/26/22 Rx oxycodone-acetaminophen 5 mg-325 1 tablet PO Q4H PRN pain #8 tabs 02/19/21 06/26/22 Rx mg tablet (Percocet) atorvastatin 20 mg tablet 20 mg PO HS 06/16/22 06/26/22 History Allergies Allergy/AdvReac Type Severity Reaction Status Date / Time No Known Allergies Allergy Verified 06/26/22 09:53 Exam Const: General: alert Orientation/consciousness: patient oriented x3 Resp: Auscultation: clear to auscultation bilaterally Cardio: Rhythm: regular rhythm GI: GI Palp: Yes Soft to palpation and No Tenderness to palpation present (GI) Neuro: General: patient oriented x3 Assessment and Plan Assessment and plan (1) Marquez's esophagus: Code(s): K22.70 - Marquez's esophagus without dysplasia Status: Acute Assessment and Plan: EGD with possible biopsy or dilatation or cautery.
[2022-06-26 10:06] VITALS: BP 147/92; PULSE 60; RESP 18; O2SAT 97
[2022-06-26 10:09] VITALS: BP 147/92; PULSE 60; RESP 18; TEMP 36.2; O2SAT 97
--- NOTE | 2022-06-26 10:12 | P.PNAN_ITS ---
Anes - Initial Pre Proc Eval Procedure: Operation Date: 06/26/22 14:30 Proposed Procedures p Esophagogastroduodenoscopy EGD - Cuong Pimentel MD Date/Time: 06/26/22 10:12 Surgeon: Cuong Pimentel MD Pre Op Diagnosis: Marquez's esophagus Patient Data Age: 56 Gender: M Height: 1.68 m Weight: 107.9 kg Last Vital Signs Temp 97.2 F L 06/26/22 10:09 Pulse 60 06/26/22 10:09 Resp 18 06/26/22 10:09 BP 147/92 H 06/26/22 10:09 Pulse Ox 97 06/26/22 10:09 O2 Del Method Room Air 06/26/22 10:09 Allergies Allergy/AdvReac Type Severity Reaction Status Date / Time No Known Allergies Allergy Verified 06/26/22 09:53 Home Medications Medication Instructions Recorded Confirmed Type alprazolam 1 mg tablet 1 mg PO DAILY PRN Anxiety 09/30/19 06/26/22 History tamsulosin 0.4 mg capsule (Flomax) 0.4 mg PO HS #10 caps 09/30/19 06/26/22 Rx pantoprazole 40 mg tablet,delayed 40 mg PO QAM 10/04/19 06/26/22 History release hydrocodone 10 mg-acetaminophen 1 tablet PO PRN PRN Back Pain 05/27/20 06/26/22 History 325 mg tablet ibuprofen 600 mg tablet (IBU) 600 mg PO Q6H PRN pain #20 tabs 02/19/21 06/26/22 Rx oxycodone-acetaminophen 5 mg-325 1 tablet PO Q4H PRN pain #8 tabs 02/19/21 06/26/22 Rx mg tablet (Percocet) atorvastatin 20 mg tablet 20 mg PO HS 06/16/22 06/26/22 History Patient hx anesthesia problems: none Family hx anesthesia problems: none Results Review: All pre-operative results and documents have been reviewed as part of the pre- operative evaluation. [facility] Past Medical History Medical History (Updated 06/25/22 @ 14:24 by Cuong Pimentel MD) Anxiety Carpal tunnel syndrome Depression GERD (gastroesophageal reflux disease) HLD (hyperlipidemia) Kidney stones frequent Peptic ulcer Plantar fasciitis Right arm fracture Surgical History Surgical History Hx of carpal tunnel repair bilateral wrists Hx of cystoscopy with extraction of kidney stone Hx of lithotripsy Social History Social History Smoking status: Former smoker Substance use type: does not use Living arrangements: with family Gender identity (if verbalized by the patient): Male Spiritual care concerns: No Anes - Eval Final PreProcedure Day of Procedure 06/26/22 10:12 Patient weight: obese Heart: irregular rhythm Lungs: clear to auscultation Airway: Mallampati scale class III Neurological: alert and oriented Last oral intake: >/= 8 hours ASA classification: III Emergent: no Anesthetic plan: proceed Anesthesia type and monitoring: general GIVS and standard monitoring Results Review: All pre-operative results and documents have been reviewed as part of the pre- operative evaluation. Informed Consent: The patient's anesthetic plan and its attendant risks and benefits were discussed with the patient/family/POA. Questions were solicited and answers provided to the satisfaction of the patient/family/POA.
[2022-06-26] MEDS: LACTATED RINGERS 1,000 ML 150 ML IV CONT (10:15)
[2022-06-26 10:34] VITALS: BP 116/74; PULSE 77; RESP 18; O2SAT 96
[2022-06-26 10:43] VITALS: BP 105/68; PULSE 77; RESP 18; O2SAT 97
[2022-06-26 10:51] VITALS: BP 119/76; PULSE 62; RESP 18; O2SAT 95
== END 2022-06-26 10:58 | disposition home or self-care (01) ==
PROVIDERS: PCP Internal Medicine; Visit Provider Internal Medicine Gastroenterology
PROC: 0DJ08ZZ Inspection of Upper Intestinal Tract, Via Natural or Artificial Opening Endoscopic (ICD-10-PCS; CPT 43235; principal; 2022-06-26 14:30)
DX: Z09 Encounter for follow-up examination after completed treatment for conditions other than malignant neoplasm (principal); K22.70 Barrett's esophagus without dysplasia; E78.5 Hyperlipidemia, unspecified; K21.9 Gastro-esophageal reflux disease without esophagitis; F41.9 Anxiety disorder, unspecified; F32.A Depression, unspecified; E66.9 Obesity, unspecified; Z68.38 Body mass index [BMI] 38.0-38.9, adult
CPT/HCPCS: 43239; 88305; J2704; J7120

== ENCOUNTER 2023-03-18 09:46 | Emergency (ER) | payer OTHER, SELFPAY ==
[2023-03-18] VITALS (7 sets, daily range): BP systolic 155–171; BP diastolic 83–97; PULSE 68–87; RESP 15–22; TEMP 36.2; O2SAT 97–98
--- NOTE | ~2023-03-18 | CT_ITS ---
CT of the Abdomen and Pelvis: Indication: Right flank pain Technique: 2.5 mm axial scans were obtained through the abdomen and pelvis following intravenous adm inistration of 100 cc of Omnipaque 350. Dose reduction technique was used on this scan by utilizing a utomated exposure control and iterative reconstruction technique. The dose-length product (DLP) was 1 237.96 mGy-cm. COMPARISON: 02/19/2021 Findings: Scans through the lung bases are unremarkable. The liver, spleen, pancreas, gallbladder, and adrenal are within normal limits. Small bilateral nonob structing renal stones are present, largest stone measuring up to approximately 5 mm on the right, an d 6 mm on the left. No ureteral stone or hydronephrosis on either side. No evidence of aortic aneurys m. No lymphadenopathy. No bowel obstruction or bowel wall thickening. There is no evidence to suggest acute appendicitis. Images through the pelvis were performed. Urinary bladder unremarkable. Prostate gland mildly enlarge d. No ascites. Impression: Bilateral nonobstructing renal stones, as detailed above. Reviewed, dictated and finalized at location M. Impression: Bilateral nonobstructing renal stones, as detailed above.
[2023-03-18 10:32] LABS: Alanine Aminotransferase 23 U/L (6-50); Albumin Level 4.2 g/dL (3.5-5.1); Alkaline Phosphatase 87 U/L (38-126); Anion Gap 10 mmol/L (8-16); Aspartate Amino Transferase 20 U/L (17-59); Bilirubin,Total 0.4 mg/dL (0.2-1.3); Blood Urea Nitrogen 17 mg/dL (9-20); Calcium 9.1 mg/dL (8.4-10.2); Carbon Dioxide 23 mmol/L (22-30); Chloride 106 mmol/L (98-107); Estimated CRCL calculation 68 ml/min; Estimated Glomerular Filt Rate > 60; Glucose 128 mg/dL (65-110); Potassium 4.6 mmol/L (3.4-5.0); Sodium 139 mmol/L (137-145)
[2023-03-18 10:33] LABS: Appearance Urine Clear (Clear); Bacteria Urine None Seen /hpf; Bilirubin Urine Negative (Negative); Blood Urine Negative (Negative); Color Urine Yellow (Yellow); Glucose Urine UA Negative (Negative); Ketones Urine Negative (Negative); Leukocyte Esterase Ur 2+ LEU/UL (Negative); Nitrate Urine Negative (Negative); Non Pathogenic Casts 0-2; Protein Urine Negative (Negative); RBC Urine 0-2 /hpf (0-2); Specific Grav Ur 1.018 (1.001-1.035); Squamous Epithelial Cell Urine None seen /hpf (Few); WBC Urine 51-100 /hpf; pH Urine 5.5 (5.0-9.0)
[2023-03-18 10:35] LABS: Basophils Absolute Auto 0.1 K/mm3 (0.0-0.1); Basophils Percent Auto 0.5 % (0.2-1.2); Eosinophils Absolute Auto 0.1 K/mm3 (0-0.3); Eosinophils Percent Auto 0.8 % (0-4.4); Hematocrit 44.5 % (42.0-52.0); Hemoglobin 13.8 g/dL (14.0-18.0); Immature Granulocyte Absolute 0.04 K/mm3 (0.00-0.031); Immature Granulocyte Percent A 0.4 % (0-0.5); Immature Platelet Fraction Pct 9.8 % (0.9-11.2); Lymphocytes Absolute Auto 1.05 K/mm3 (0.9-3.2); Lymphocytes Percent Auto 10.5 % (18.3-44.2); Mean Corpuscular Hemoglobin 28.2 pg (26-34); Mean Platelet Volume 11.9 fl (7.4-10.4); Monocytes Absolute Auto 0.7 K/mm3 (0.1-0.6); Monocytes Percent Auto 6.6 % (2.6-8.5); Neutrophils Absolute Auto 8.2 K/mm3 (1.3-6.7); Neutrophils Percent Auto 81.2 % (45.5-73.1); Platelet Count Result 176 k/mm3 (150-375); Red Blood Count 4.89 M/mm3 (4.6-6.20); Red Cell Distribution Width 13.5 % (11.5-14.5)
[2023-03-18 10:41] LABS: Add Urine Microscopic? YES
--- NOTE | 2023-03-18 12:20 | ED.GENADULT ---
HPI - General Adult General Chief complaint: Urogenital-Male Stated complaint: bladder pain Time Seen by Provider: 03/18/23 11:45 Source: patient Mode of arrival: ambulatory Limitations: no limitations History of Present Illness HPI narrative: This is a 57-year-old male with PMH of kidney stones, peptic ulcer, HLD who presents to the ED with chief complaint of suprapubic pain ongoing for the past 3 days. Patient states he has had many many renal stones in the past and follows with Dr. Jarvis has not had any problems in the last couple of years. He states he saw his primary care doctor with the onset of suprapubic pain and urinary discomfort and was given prescription for Bactrim. He states he has taken this with minimal relief. He reports today he started to have some right flank pain and nausea. Denies fevers, chills, vomiting, problems with bowel movements. Past surgical history of cystoscopy and lithotripsy but no abdominal surgical history. Related Data Home Medications Medication Instructions Recorded Confirmed alprazolam 1 mg tablet 1 mg PO DAILY PRN Anxiety 09/30/19 06/26/22 pantoprazole 40 mg tablet,delayed 40 mg PO QAM 10/04/19 06/26/22 release hydrocodone 10 mg-acetaminophen 1 tablet PO PRN PRN Back Pain 05/27/20 06/26/22 325 mg tablet atorvastatin 20 mg tablet 20 mg PO HS 06/16/22 06/26/22 Allergies Allergy/AdvReac Type Severity Reaction Status Date / Time No Known Allergies Allergy Verified 06/26/22 09:53 [facility] Past Medical History Medical History (Updated 03/18/23 @ 13:47 by Renato Diane PA-C) Anxiety Carpal tunnel syndrome Depression GERD (gastroesophageal reflux disease) HLD (hyperlipidemia) Kidney stones frequent Peptic ulcer Plantar fasciitis Right arm fracture Surgical History Surgical History Hx of carpal tunnel repair bilateral wrists Hx of cystoscopy with extraction of kidney stone Hx of lithotripsy Social History Social History Smoking status: Former smoker Substance use type: does not use Living arrangements: with family Gender identity (if verbalized by the patient): Male Spiritual care concerns: No Exam Narrative: GENERAL: Well-appearing, well-nourished, and in no acute distress. HEAD: Normocephalic, atraumatic. EYES: PERRLA and EOMI. ENT: Nares clear, no rhinorrhea or epistaxis. Mucous membranes moist. Oropharynx without tonsillar hypertrophy exudate or other lesions. NECK: Supple. No adenopathy or masses. CHEST: No respiratory distress. Clear to auscultation. No wheezes rales or rhonchi HEART: Regular rate and rhythm. No murmur heard. Normal peripheral pulses. ABDOMEN: Mild right flank tenderness. Soft, otherwise nontender abdomen, nondistended, normal active bowel sounds. Negative Sullivan sign. Negative McBurney's point. MSK: Normal range of motion. No edema. SKIN: Warm, dry, no rash. NEURO: Alert and oriented x3. No focal deficits. PSYCH: Normal mood and affect. Course Vital Signs Vital signs: Vital Signs Temperature 97.1 F L 03/18/23 09:48 Pulse Rate 87 03/18/23 09:48 Respiratory Rate 20 03/18/23 09:48 Blood Pressure 171/83 H 03/18/23 09:48 Pulse Oximetry 98 03/18/23 09:48 Oxygen Delivery Room Air 03/18/23 09:48 Temperature 97.1 F L 03/18/23 09:48 Pulse Rate 68 03/18/23 13:49 Respiratory Rate 22 H 03/18/23 13:49 Blood Pressure 155/84 H 03/18/23 12:29 Pulse Oximetry 97 03/18/23 12:29 Oxygen Delivery Room Air 03/18/23 11:42 Medical Decision Making [facility] Narrative Medical decision making narrative: This is a 57-year-old male who presents to the ED with chief complaint of suprapubic pain ongoing for the past 3 to 4 days. He was given recent prescription for Bactrim for possible UTI by his primary care doctor. Vitals are normal. Afebrile. Exam shows mild right flank tendernes
[2023-03-18] MEDS: ONDANSETRON INJ 4 MG/2 ML VIAL IV PUSH (12:25)
[2023-03-18] MEDS: HYDROmorphone HCL INJ (*CRX) 1 MG/ML SYR 0.5 MG IV PUSH (12:25)
== END 2023-03-18 13:56 | disposition home or self-care (01) ==
PROVIDERS: Emergency Medicine; Emergency Provider Physician Assistant; PCP Internal Medicine
DX: N39.0 Urinary tract infection, site not specified (principal); E78.5 Hyperlipidemia, unspecified; K21.9 Gastro-esophageal reflux disease without esophagitis; F41.9 Anxiety disorder, unspecified; F32.A Depression, unspecified; Z87.11 Personal history of peptic ulcer disease; Z87.442 Personal history of urinary calculi; Z87.891 Personal history of nicotine dependence
CPT/HCPCS: 36415; 74177; 80053; 81001; 85025; 85055; 87086; 87088; 96374; 96375; 99284; J1170; J2405; Q9967

== ENCOUNTER 2023-03-22 12:36 | Outpatient (CLI) | payer OTHER, SELFPAY ==
--- NOTE | ~2023-03-22 | XR_ITS ---
Supine and upright views of the abdomen Clinical history: Renal stones COMPARISON: 10/29/2021 Findings: Bowel gas pattern is nonspecific. No evidence for obstruction or free air. Multiple bilater al renal stones are present, with largest stone at the left mid to lower pole measuring [address] Right pelvic phleboliths appear similar to prior exam. Osseous structures are intact. Impression: Multiple bilateral renal stones, as detailed above. Reviewed, dictated and finalized at location . Impression: Multiple bilateral renal stones, as detailed above.
== END 2023-03-22 12:37 | disposition home or self-care (01) ==
LOC: ANHIMG 12:43
PROVIDERS: PCP Internal Medicine; Visit Provider Nurse Practitioner
DX: N20.0 Calculus of kidney (principal)
CPT/HCPCS: 74018

== ENCOUNTER 2023-07-02 02:45 | Emergency (ER) | payer OTHER, SELFPAY ==
--- NOTE | ~2023-07-02 | CT_ITS ---
EXAMINATION: CT abdomen pelvis wo con DATE: 07/02/2023 03:37 INDICATION: Right flank pain. TECHNIQUE: Computed tomography (CT) of the abdomen and pelvis was performed without intravenous contr ast. Automated exposure control and iterative reconstruction technique were employed. The dose-length product was 1425.64 mGy-cm. COMPARISON: CT abdomen and pelvis 03/18/2023 FINDINGS: The visualized portions of the lung bases demonstrate mild atelectasis. There are chronic s ubpleural bands in the lower lobes. A calcified right lung nodule is consistent with old granulomatou s disease. No pleural effusion. The heart size is normal. No pericardial effusion. The liver, gallbla dder, spleen, pancreas, and adrenal glands are normal. There are approximately 5 stones in right kidn ey measuring up to 5 mm. There are approximately 9 stones in left kidney measuring up to 4 mm. There is a 5 mm stone in distal right ureter. There is mild right hydronephrosis and hydroureter. The prost ate is mildly enlarged. There are no dilated loops of bowel. The appendix is normal. There are no pat hologically enlarged lymph nodes. There is no free intraperitoneal fluid. Aortic atherosclerosis is n oted. There is severe lower lumbar spondylosis. IMPRESSION: 1. 5 mm stone in distal right ureter with mild right hydronephrosis and hydroureter. 2. Bilateral nonobstructing kidney stones. Reviewed, dictated and finalized at location E. IMPRESSION: 1. 5 mm stone in distal right ureter with mild right hydronephrosis and hydrour eter. 2. Bilateral nonobstructing kidney stones.
[2023-07-02 02:48] VITALS: BP 189/101; PULSE 72; RESP 15; TEMP 36.3; O2SAT 98
--- NOTE | 2023-07-02 02:54 | PC.NURSE ---
While patient was in triage he attempted to give a urine sample. Upon returning to triage desk the patient stated It feels like I have to go, but hardly any came out .
--- NOTE | 2023-07-02 03:12 | ED.ABDPAIN ---
HPI - Abdominal Pain General Chief Complaint: Abdominal Pain Stated Complaint: R flank pain, kidney stone Time Seen by Provider: 07/02/23 02:58 History of Present Illness HPI narrative: Patient is a 57-year-old male with history of hyperlipidemia, multiple recurrent kidney stones here with right-sided flank pain. He notes that His pain is right-sided and radiates from his back to his right anterior abdomen. He notes increase urge to urinate however denies any sho hematuria or dysuria. He notes that this feels very similar to prior kidney stones. Patient states that he has had more than 10 prior lithotripsies performed in the past. His most recent kidney stone was on the left side, treated with lithotripsy approximately 2 months ago at [facility]. He states that he previously followed with urology here however due to insurance changes he transferred his care to a urologist through [facility]. He denies blood thinner use. No fever, chills, cough, congestion, diarrhea. No trauma. Related Data Home Medications Medication Instructions Recorded Confirmed alprazolam 1 mg tablet 1 mg PO DAILY PRN Anxiety 09/30/19 06/26/22 pantoprazole 40 mg tablet,delayed 40 mg PO QAM 10/04/19 06/26/22 release hydrocodone 10 mg-acetaminophen 1 tablet PO PRN PRN Back Pain 05/27/20 06/26/22 325 mg tablet atorvastatin 20 mg tablet 20 mg PO HS 06/16/22 06/26/22 Allergies Allergy/AdvReac Type Severity Reaction Status Date / Time No Known Allergies Allergy Verified 06/26/22 09:53 Review of Systems Review of Systems: All systems reviewed & are unremarkable except as noted in HPI and below PMFSH Past Medical History Medical History (Updated 07/02/23 @ 05:19 by Shannan Castañeda MD) Anxiety Carpal tunnel syndrome Depression GERD (gastroesophageal reflux disease) HLD (hyperlipidemia) Kidney stones frequent Peptic ulcer Plantar fasciitis Right arm fracture Surgical History Surgical History Hx of carpal tunnel repair bilateral wrists Hx of cystoscopy with extraction of kidney stone Hx of lithotripsy Social History Social History Smoking status: Former smoker Substance use type: does not use Living arrangements: with family Gender identity (if verbalized by the patient): Male Spiritual care concerns: No Exam Narrative: GENERAL: Well-appearing, well-nourished, and in no acute distress. HEAD: Normocephalic, atraumatic. EYES: PERRLA and EOMI. ENT: Nares clear. Mucous membranes moist. NECK: Supple. CHEST: Clear to auscultation. No respiratory distress. HEART: Regular rate and rhythm. Normal peripheral pulses. ABDOMEN: Soft, tenderness on the right CVA, right lateral abdomen diffusely, no rebound or guarding. EXTREMITIES: Normal range of motion. No edema. SKIN: Warm, dry, no rash. NEURO: No focal deficits. Alert and oriented x3. PSYCH: Normal mood and affect. Course Course Emergency Course: Chart review performed. Patient here with flank pain. Triage vitals show HTN, otherwise normal. Multiple prior visits for urological concerns, Urology operative note reviewed from 10/06/19 where he underwent bilateral uteroscopy and stone extraction. Patient seen evaluated, appears to be in pain. History and exam consistent with likely a ureterolithiasis on the right side. No availability for ultrasound at this hour, will do CT abdomen pelvis. Basic lab work ordered to evaluate for possible KANDI. UA ordered to evaluate for UTI. Pain medication ordered. CBC grossly normal, Urine shows 3+ blood, negative for UTI. Patient reevaluated, pain is significantly improved. Awaiting CT, patient updated on plan of care. CT shows 5mm distal right ureteral stone with mild hydronephrosis. Discussed with patient. He would like to do trial of passing stone at home. He notes he has pain medication and flomax at home.
[2023-07-02] MEDS: HYDROmorphone HCL INJ (*CRX) 1 MG/ML SYR IV PUSH ×2 (03:26→05:20)
[2023-07-02] MEDS: ONDANSETRON INJ 4 MG/2 ML VIAL IV PUSH (03:30)
[2023-07-02 03:36] LABS: Basophils Percent Auto 0.8 % (0.2-1.2); Eosinophils Absolute Auto 0.2 K/mm3 (0-0.3); Eosinophils Percent Auto 2.9 % (0-4.4); Hemoglobin 13.9 g/dL (14.0-18.0); Immature Granulocyte Absolute 0.02 K/mm3 (0.00-0.031); Immature Granulocyte Percent A 0.4 % (0-0.5); Lymphocytes Percent Auto 33.1 % (18.3-44.2); Mean Corpuscular HGB Conc 30.9 g/dl (32-36); Mean Corpuscular Hemoglobin 28.1 pg (26-34); Mean Corpuscular Volume 90.9 fl (80-100); Mean Platelet Volume 11.1 fl (7.4-10.4); Monocytes Absolute Auto 0.5 K/mm3 (0.1-0.6); Monocytes Percent Auto 9.2 % (2.6-8.5); Neutrophils Absolute Auto 2.8 K/mm3 (1.3-6.7); Neutrophils Percent Auto 53.6 % (45.5-73.1); Platelet Count Result 199 k/mm3 (150-375); Red Blood Count 4.95 M/mm3 (4.6-6.20); Red Cell Distribution Width 13.4 % (11.5-14.5); White Blood Count 5.1 K/mm3 (4.5-10.0)
[2023-07-02 03:38] LABS: Appearance Urine Clear (Clear); Bilirubin Urine 1+ (Negative); Blood Urine 3+ (Negative); Color Urine Yellow (Yellow); Glucose Urine UA Negative (Negative); Ketones Urine Negative (Negative); Leukocyte Esterase Ur Negative LEU/UL (Negative); Nitrate Urine Negative (Negative); Protein Urine 2+ mg/dL (Negative); Specific Grav Ur >= 1.030 (1.001-1.035); Urobilinogen Urine 0.2 mg/dL (<2.0)
[2023-07-02 03:46] LABS: INR 0.9; Prothrombin Time 12.3 Seconds (11.1-14.7)
[2023-07-02 03:47] LABS: Bacteria Urine None Seen /hpf; Non Pathogenic Casts 0-2; RBC Urine >100 /hpf (0-2); Squamous Epithelial Cell Urine None seen /hpf (Few)
[2023-07-02 03:47] LABS: Partial Thromboplastin Time 25.7 SECONDS (22.3-36.8)
[2023-07-02 03:49] LABS: Alanine Aminotransferase 24 U/L (6-50); Albumin Level 4.3 g/dL (3.5-5.1); Alkaline Phosphatase 88 U/L (38-126); Anion Gap 8 mmol/L (8-16); Aspartate Amino Transferase 24 U/L (17-59); Bilirubin,Total 0.4 mg/dL (0.2-1.3); Blood Urea Nitrogen 18 mg/dL (9-20); Calcium 8.9 mg/dL (8.4-10.2); Carbon Dioxide 27 mmol/L (22-30); Chloride 103 mmol/L (98-107); Estimated CRCL calculation 74 ml/min; Estimated Glomerular Filt Rate > 60; Glucose 136 mg/dL (65-110); Potassium 4.1 mmol/L (3.4-5.0); Sodium 138 mmol/L (137-145)
[2023-07-02 03:53] LABS: Add Urine Microscopic? YES
[2023-07-02 04:26] VITALS: BP 146/90; PULSE 66; RESP 14; O2SAT 98
== END 2023-07-02 05:40 | disposition home or self-care (01) ==
PROVIDERS: Emergency Provider Student in an Organized Health Care Education/Training Program; PCP Internal Medicine
DX: N13.2 Hydronephrosis with renal and ureteral calculous obstruction (principal); E78.5 Hyperlipidemia, unspecified; K21.9 Gastro-esophageal reflux disease without esophagitis; F41.9 Anxiety disorder, unspecified; F32.A Depression, unspecified; Z87.442 Personal history of urinary calculi; Z87.11 Personal history of peptic ulcer disease; Z87.891 Personal history of nicotine dependence
CPT/HCPCS: 36415; 74176; 80053; 81001; 85025; 85610; 85730; 87086; 96374; 96375; 96376; 99284; J1170; J2405